=== PATIENT | male | born 1960 | race Caucasian/White ===

== ENCOUNTER → 2018-08-15 10:34 | Outpatient (CLI) | payer OTHER ==
[2014-02-04 08:40] VITALS: BMI 41.0
[~2018-08-15 10:34] MED LIST: AMBIEN10 MG PO; BAYER CHEWABLE81 MG PO; GLUCOPHAGE1000 MG PO; LOTREL 10/20 CA1 CAP PO; ULTRAM50 MG PO
== END | disposition home or self-care (01) ==
LOC: D.MRI 10:34
DX: M25.522 Pain in left elbow (principal)

== ENCOUNTER 2021-02-13 10:20 | Emergency (ER) | payer MEDICAID ==
[~2021-02-13] VITALS: Ht 167.6 cm; Wt 112.3 kg
[2021-02-13 10:31] VITALS: BP 124/83; Ht 167.6 cm; Wt 112.3 kg
[2021-02-13] MEDS ORDERED: TRAZODONE HCL300 MG PO (10:33)
[2021-02-13] MEDS ORDERED: HYDROCODON-ACE1 EA10 PO (10:34)
[2021-02-13] MEDS ORDERED: OZEMPIC1 MG/0.75 SC (10:34)
[2021-02-13 10:49] LABS: BASOPHILS 0.8 % (0-2); EOSINOPHILS 0.7 % (0-7); HEMOGLOBIN 18.1 g/dL (13.5-17.5); LYMPHOCYTES 24.6 % (15-50); MCH 30.8 pg (26.0-34.0); MCHC 34.7 g/dL (31.0-37.0); MCV 88.7 fL (80.0-100.0); MEAN PLATELET VOLUME 8.2 fL (7.4-10.4); MONOCYTES 9.1 % (2-11); NEUTROPHILS 64.8 % (40-80); RBC 5.87 10x6/uL (4.20-6.10); RDW 14.3 % (11.5-14.5); WBC 9.8 10x3/uL (4.8-10.8)
[2021-02-13 10:52] LABS: PLATELET COUNT 265 10x3/uL (130-400)
[2021-02-13 11:00] LABS: ANION GAP 13.5 mmol/L (8-16); CALCIUM 9.3 mg/dL (8.5-10.1); CARBON DIOXIDE 26.3 mmol/L (21.0-32.0); CREATININE - SERUM 1.5 mg/dL (0.6-1.3); POTASSIUM - SERUM 3.8 mmol/L (3.5-5.1)
[2021-02-13 11:04] LABS: BILIRUBIN NEGATIVE (NEGATIVE); KETONE NEGATIVE (NEGATIVE); NITRITE NEGATIVE (NEGATIVE); UROBILINOGEN NORMAL mg/dL (< 2)
[2021-02-13 11:06] LABS: ALBUMIN 4.1 g/dL (3.4-5.0); BILIRUBIN - TOTAL 0.92 mg/dL (0.2-1.3); PROTEIN - SERUM 7.9 g/dL (6.4-8.2)
== END 2021-02-13 12:02 | disposition home or self-care (01) ==
LOC: D.ER 10:20
PROVIDERS: Student in an Organized Health Care Education/Training Program
DX: Z71.1 Person with feared health complaint in whom no diagnosis is made (principal); M54.5 Low back pain; E11.9 Type 2 diabetes mellitus without complications; Z79.84 Long term (current) use of oral hypoglycemic drugs; I10 Essential (primary) hypertension